=== PATIENT | female | born 1955 | race Caucasian/White ===

== ENCOUNTER 2022-03-30 16:52 | Inpatient (IN) | payer OTHER ==
[~2022-03-30] VITALS: Ht 154.9 cm; Wt 68.0 kg
[~2022-03-30 16:52] MED LIST: AMLO2.5T2 PO; ASA81 PO; ASPI-524 PO; CYAN100070 PO; DULO60CA42 PO; FOLI400T9 PO; LEVO250T2 PO; LOVA20TA2 PO; LYR50 PO; NPH,100V SUBCUT; TUM500 GT; VIT1TABL44 PO; insulin pump
[2022-03-30] MEDS ORDERED: NACL 0.9% 1,000 ML IV ONE (17:30)
[2022-03-30 18:00] VITALS: BP_SYST 152
[2022-03-30 18:00] LABS: BASOPHILS % (AUTO) 0.3 % (0.0-2.0); HEMATOCRIT 32.2 % (36-48); LYMPHOCYTES # (AUTO) 0.8 K/uL (1.0-5.5); MEAN CORPUSCULAR HEMOGLOBIN 29 pg (27-31); MEAN CORPUSCULAR HGB CONC 31 % (32-36); MEAN CORPUSCULAR VOLUME 92 fL (79.0-98.0); MONOCYTES # (AUTO) 0.9 K/uL (0.0-1.0); MONOCYTES % (AUTO) 8.4 % (1.7-9.3); NEUTROPHILS # (AUTO) 8.7 K/uL (1.8-7.7); NEUTROPHILS % (AUTO) 83.3 % (40.0-70.0); PLATELET COUNT (AUTO) 240 K/uL (130-430); RED CELL DISTRIBUTION WIDTH 18.8 % (9.0-15.0); WHITE BLOOD COUNT (AUTO) 10.4 K/uL (4.8-10.8)
[2022-03-30 18:17] LABS: ANION GAP 16 (5-15); CALCIUM 8.2 mg/dL (8.4-11.0); CHLORIDE 97 mmol/L (98-107); CREATININE 6.01 mg/dL (0.55-1.30); UREA NITROGEN, BLOOD 79 mg/dL (8-21)
--- NOTE | 2022-03-30 18:20 | NUR ---
Ms. Daugherty is a 67-year-old Female with history of type 1 diabetes, ESRD on dialysis Thursday/Thursday/Thursday and recent hospitalization for COVID 2 weeks ago. CC high blood sugar values. She states her symptoms started this morning at 6 AM, she has taken a total of 40 units of NPH insulin without improvement. Patient states that her at home blood glucometer is giving a reading of high, without a number. She also endorses a few episodes of emesis today and reports that she feels warm, however does not have a fever. Denies associated chest pain, shortness of breath, cough, diarrhea, abdominal pain or any other symptoms at this time. Patient's last dialysis session was on Thursday, which she completed without complication.
[2022-03-30 18:33] LABS: ALANINE AMINOTRANSFERASE 26 U/L (12-78); ASPARTATE AMINOTRANSFERASE 19 U/L (10-37); LIPASE 232 U/L (73-393); TOTAL BILIRUBIN 0.4 mg/dL (0.0-1.0)
[2022-03-30 18:35] LABS: GFR AFRICAN AMERICAN 9 mL/min (>90)
[2022-03-30 18:41] LABS: GLUCOSE 713 mg/dL (70-99)
--- NOTE | 2022-03-30 18:44 | NUR ---
Critical lab value: blood sugar 713 troponin 1081
[2022-03-30 18:47] LABS: ACETONE, SERUM NEGATIVE (NEGATIVE)
[2022-03-30] MEDS ORDERED: ASPIRIN 81 MG TAB.CHEW PO ONE (19:00)
[2022-03-30] MEDS ORDERED: INSULIN REGULAR, HUMAN 100 UNITS/ML, 3 ML VIAL SUBCUT ONE (19:00)
--- NOTE | 2022-03-30 19:01 | NUR ---
covid swab collected at bedside
--- NOTE | 2022-03-30 19:27 | NUR ---
Received report from RAN Rios. Pt moved from [facility] to bed 2 as commanded by dariela rim fire charger operator.
--- NOTE | 2022-03-30 20:49 | NUR ---
patient refused aspirin. made aware.
--- NOTE | 2022-03-30 20:52 | NUR ---
Paged Dr. Brumfield at this time. Awaiting phone call back.
--- NOTE | 2022-03-30 21:14 | NUR ---
Admit bed requested Patient will be admitted to care of . Admitted to TELE unit. Diagnosis : STEMI, HYPERGLYCEMIA, RENAL FAILURE Inpatient (Yes or No) Y Observation (Yes or No) N Orientation concerns or request close to nursing station (Yes or No) N Covid Status : POSITIVE On vent or bipap: N Isolation requirements: N Needs a sitter: N From Home (Yes or if No enter name of facility) Y Requires Dialysis (Yes or No) N
--- NOTE | 2022-03-30 21:28 | NUR ---
Spoke with Dr. Brumfield. NOtified physician of patient's blood sugar. Instructed to follow sliding scale and to get patient to shut off her own insulin pump. Admiting provider also notified of patient's covid positive status and elevated troponins. Instructed to notify cardiology consult Dr. Kandice Brumfield.
[2022-03-30] MEDS ORDERED: *HEPARIN PER PHARMACY XX ONE ×2 (21:30→23:00)
[2022-03-30] MEDS ORDERED: HEPARIN 25,000 UNITS/D5W 250ML 250 ML IV ONE (21:30)
--- NOTE | 2022-03-30 21:34 | NUR ---
Spoke with cardiology consult Dr. Kandice Brumfield. Notified cardiology of elevated troponins and current blood pressure trends. See new orders entered.
[2022-03-30] MEDS: INSULIN REGULAR, HUMAN 100 UNITS/ML, 3 ML VIAL (humuLIN R) SUBCUT PRN (21:35)
[2022-03-30] MEDS ORDERED: INSULIN REGULAR, HUMAN 10 UNITS/0.1 ML, 3 ML VIAL ONE (21:55)
--- NOTE | 2022-03-30 22:38 | NUR ---
Lab noted to add on pt/inr. Blood specimen in lab.
[2022-03-30] MEDS ORDERED: HYDROcodone/ACETAMIN 5-325 MG TAB (NORCO/ VICODIN) PO PRN (22:45)
[2022-03-30] MEDS ORDERED: HYDROcodone/ACETAMIN 10-325 MG TAB PO PRN (22:45)
[2022-03-30] MEDS ORDERED: ONDANSETRON HCL 4 MG/2 ML VIAL IVP PRN (22:45)
[2022-03-30] MEDS ORDERED: ACETAMINOPHEN 325 MG TABLET PO PRN (22:45)
[2022-03-30] MEDS ORDERED: NALOXONE HCL 0.4 MG/ML AMP (NARCAN) IVP PRN ×2 (22:45)
--- NOTE | 2022-03-30 22:46 | NUR ---
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
[2022-03-30] MEDS: METOPROLOL SUCCINATE 25 MG TAB.SR.24H (TOPROL XL) PO SCH (23:30)
[2022-03-30] MEDS ORDERED: HEPARIN SODIUM,PORCINE 3000 UNITS/0.6 ML BOLUS IVP PRN (23:45)
[2022-03-30] MEDS ORDERED: HEPARIN SODIUM,PORCINE 2000 UNITS/0.4 ML BOLUS IVP PRN (23:45)
[2022-03-30] MEDS ORDERED: HEPARIN SODIUM,PORCINE 5,000 UNITS/ML VIAL IV ONE (23:45)
[2022-03-31] VITALS (18 sets, daily range): BP systolic 102–162
--- NOTE | 2022-03-31 01:09 | NUR ---
Notified community relations specialist to page both Dr. Cole (cardiology and admitting).
[2022-03-31] MEDS ORDERED: VITA250012 PO (01:24)
[2022-03-31] MEDS ORDERED: FOLI0.8T42 PO (01:24)
[2022-03-31] MEDS ORDERED: AMLO5TAB4 PO (01:24)
[2022-03-31] MEDS ORDERED: LIP20 PO (01:24)
[2022-03-31] MEDS ORDERED: ASPI-1155 PO (01:24)
[2022-03-31] MEDS ORDERED: LACT1TAB PO (01:24)
[2022-03-31] MEDS ORDERED: PREG75CA PO (01:24)
[2022-03-31] MEDS ORDERED: CALC-886 PO (01:24)
[2022-03-31] MEDS: HEPARIN 25,000 UNITS in 250 ML PREMIX IV PRN (01:41)
--- NOTE | 2022-03-31 01:41 | NUR ---
Heparin gtt started @10ml/hr (1,000 units./hr). Clarified with Pharmacist Jaimet infuse medication at this rate.
[2022-03-31] MEDS ORDERED: NACL 0.9% 1,000 ML IV ONE (01:45)
--- NOTE | 2022-03-31 03:49 | NUR ---
Pt upgraded to icu level of care. Instructed to start patient on levophed drip.
[2022-03-31] MEDS ORDERED: NOREPINEPHRINE 4 MG/4 ML VIAL IV ONE (03:55)
[2022-03-31] MEDS ORDERED: NOREPINEPHRINE BITARTRATE 4 MG in NS 246 ML IV PRN (04:00)
--- NOTE | 2022-03-31 04:15 | NUR ---
Levophed gtt initiated at this time. Infusing at 0.1mcg/kg/min. Rate 25.5ml/hr. Only allowed to round using iv pump. Pt weight entered at 68kg.
--- NOTE | 2022-03-31 05:35 | NUR ---
Patient will be admitted to care of Dr. Brumfield. Admitted to ICU unit. Will go to room 127. Belongings list completed. Complete and up to date summary report printed. SBAR report given at bedside to JEREMIAH Hicks with opportunity for questions.
--- NOTE | 2022-03-31 06:20 | NUR ---
ER ADMISSION Pt admitted to ICU 9 (127A), Alert/oriented to self, place and time. Pt on room air O2 sat 93-95 %. AV shunt present left upper arm, Dialysis cath present left upper chest. Pt with 22ag right hand & 22ga right wrist, both started by ER staff. Pt belongings @ bedside. Pt also has a small insulin pump on.
[2022-03-31] MEDS ORDERED: INSULIN REGULAR, HUMAN 100 UNITS/ML, 3 ML VIAL SUBCUT SCH (07:00)
[2022-03-31] MEDS: DULoxetine HCL 30 MG CAPSULE.DR (CYMBALTA) PO SCH (08:06)
[2022-03-31] MEDS: PREGABALIN 25 MG CAPSULE (LYRICA) PO SCH ×3 (08:06→21:12)
[2022-03-31] MEDS: ASPIRIN 81 MG TAB.CHEW PO SCH (08:06)
[2022-03-31] MEDS: CALCIUM CARBONATE 500 MG/ TAB.CHEW GT SCH ×2 (08:06→21:11)
[2022-03-31] MEDS: amLODIPine BESYLATE 5 MG TABLET PO SCH ×3 (08:07→09:00)
[2022-03-31] MEDS: NORMAL SALINE 5 ML DISP.SYRIN IVF SCH ×3 (08:07→21:12)
[2022-03-31] MEDS: METOPROLOL SUCCINATE 25 MG TAB.SR.24H (TOPROL XL) PO SCH ×2 (08:07→09:06)
--- NOTE | 2022-03-31 08:30 | NUR ---
notified dr melba Baldwin that patient is receiving heparin drip into the right upper extremity and that patient has a shunt on the left arm so dr melba Baldwin order to do blood draws for PTT in lower extremities.
[2022-03-31] MEDS: INSULIN REGULAR, HUMAN 100 UNITS/ML, 3 ML VIAL (humuLIN R) SUBCUT PRN ×4 (08:40→21:22)
--- NOTE | 2022-03-31 08:49 | NUR ---
spoke with dr melba joyce, notified of patient status, ordered to increase metoprolol to 25mg same frequency, and increase atorvastatin to 40mg same frequency, also ordered for picc line since patient is receiving levophed and heparin.
[2022-03-31] MEDS ORDERED: ASPIRIN 81 MG TAB.CHEW PO SCH (09:00)
[2022-03-31 09:07] LABS: BASOPHILS # (AUTO) 0.1 K/uL (0.0-0.2); BASOPHILS % (AUTO) 1.1 % (0.0-2.0); EOSINOPHILS # (AUTO) 0.1 K/uL (0.0-0.4); EOSINOPHILS % (AUTO) 0.6 % (0.0-4.0); HEMATOCRIT 28.6 % (36-48); HEMOGLOBIN 9.1 g/dL (12.0-16.0); LYMPHOCYTES # (AUTO) 2.6 K/uL (1.0-5.5); LYMPHOCYTES % (AUTO) 20.3 % (20.5-51.5); MEAN CORPUSCULAR HEMOGLOBIN 28 pg (27-31); MEAN CORPUSCULAR HGB CONC 32 % (32-36); MEAN CORPUSCULAR VOLUME 89 fL (79.0-98.0); MONOCYTES % (AUTO) 7.9 % (1.7-9.3); NEUTROPHILS # (AUTO) 8.8 K/uL (1.8-7.7); NEUTROPHILS % (AUTO) 70.1 % (40.0-70.0); PLATELET COUNT (AUTO) 200 K/uL (130-430); RED BLOOD CELL COUNT(AUTO) 3.23 MIL/uL (4.2-6.2); RED CELL DISTRIBUTION WIDTH 19.2 % (9.0-15.0); WHITE BLOOD COUNT (AUTO) 12.6 K/uL (4.8-10.8)
[2022-03-31 10:13] LABS: ALBUMIN 2.5 g/dL (3.4-4.8); CALCIUM 7.8 mg/dL (8.4-11.0); CREATININE 5.82 mg/dL (0.55-1.30); PHOSPHORUS 6.7 mg/dL (2.7-4.5); TOTAL BILIRUBIN 0.3 mg/dL (0.0-1.0)
[2022-03-31 10:22] LABS: PROTHROMBIN TIME 10.4 SECS (9.5-12.5)
[2022-03-31] MEDS ORDERED: HEPARIN SODIUM,PORCINE 5,000 UNITS/ML VIAL MC ONE ×2 (11:30→15:00)
[2022-03-31] MEDS ORDERED: amLODIPine BESYLATE 10 MG TABLET PO ONE (11:50)
[2022-03-31] MEDS ORDERED: ATORVASTATIN 20 MG TABLET PO ONE (12:00)
[2022-03-31] MEDS ORDERED: METOPROLOL SUCCINATE 25 MG TAB.SR.24H (TOPROL XL) PO ONE (12:00)
[2022-03-31] MEDS ORDERED: CALCIUM ACETATE 667 MG CAP PO ONE (12:45)
[2022-03-31] MEDS ORDERED: ISOSORBIDE MONONITRATE 30 MG TAB.ER.24H PO ONE (14:00)
[2022-03-31] MEDS: CALCIUM ACETATE 667 MG CAP PO SCH (17:18)
[2022-03-31] MEDS ORDERED: ATORVASTATIN 20 MG TABLET PO SCH (18:00)
[2022-03-31] MEDS ORDERED: VANCOMYCIN HCL 1,000 MG in NS 250 ML IV ONE (18:00)
[2022-03-31] MEDS ORDERED: ATORVASTATIN 10 MG TABLET PO SCH (18:00)
--- NOTE | 2022-03-31 18:07 | NUR ---
PATIENT RECEIVING DIALYSIS. HOLDING IV ANTIBIOTICS UNTIL DIALYSIS IS FINISHED.
--- NOTE | 2022-03-31 19:00 | NUR ---
PT FINISHED DIALYSIS, 2 LITERS OUT, TOLERATED WELL.
[2022-04-01] VITALS (17 sets, daily range): BP systolic 102–142
[2022-04-01 06:07] LABS: BASOPHILS # (AUTO) 0.1 K/uL (0.0-0.2); BASOPHILS % (AUTO) 1.1 % (0.0-2.0); EOSINOPHILS # (AUTO) 0.1 K/uL (0.0-0.4); EOSINOPHILS % (AUTO) 1.7 % (0.0-4.0); HEMATOCRIT 28.3 % (36-48); HEMOGLOBIN 9.2 g/dL (12.0-16.0); LYMPHOCYTES # (AUTO) 1.7 K/uL (1.0-5.5); LYMPHOCYTES % (AUTO) 30.9 % (20.5-51.5); MEAN CORPUSCULAR HEMOGLOBIN 29 pg (27-31); MEAN CORPUSCULAR HGB CONC 33 % (32-36); MEAN CORPUSCULAR VOLUME 88 fL (79.0-98.0); MONOCYTES # (AUTO) 0.7 K/uL (0.0-1.0); MONOCYTES % (AUTO) 13.1 % (1.7-9.3); NEUTROPHILS # (AUTO) 2.9 K/uL (1.8-7.7); NEUTROPHILS % (AUTO) 53.2 % (40.0-70.0); PLATELET COUNT (AUTO) 144 K/uL (130-430); RED BLOOD CELL COUNT(AUTO) 3.23 MIL/uL (4.2-6.2); WHITE BLOOD COUNT (AUTO) 5.5 K/uL (4.8-10.8)
[2022-04-01] MEDS: NORMAL SALINE 5 ML DISP.SYRIN IVF SCH ×3 (06:44→22:29)
[2022-04-01] MEDS: PREGABALIN 25 MG CAPSULE (LYRICA) PO SCH ×3 (06:44→22:28)
[2022-04-01] MEDS: INSULIN REGULAR, HUMAN 100 UNITS/ML, 3 ML VIAL (humuLIN R) SUBCUT PRN ×4 (06:55→22:50)
[2022-04-01 07:10] LABS: CALCIUM 7.9 mg/dL (8.4-11.0); CREATININE 3.61 mg/dL (0.55-1.30)
[2022-04-01 07:29] LABS: ALBUMIN 2.4 g/dL (3.4-4.8); C-REACTIVE PROTEIN QUANT 1.6 mg/dL (0-0.5); PHOSPHORUS 5.1 mg/dL (2.7-4.5); TOTAL BILIRUBIN 0.3 mg/dL (0.0-1.0); VANCOMYCIN,RANDOM 17.4 ug/mL
--- NOTE | 2022-04-01 08:00 | NUR ---
PT IN BED, NO S/S OF DISTRESS, A/OX3, ROOM AIR, 2 R WRIST IV 22G, HEPARIN RUNNING 1000U/HR WITH MORNING PTT THE NEW DOSING IS 1200 UNITS/HR, CONTINENT BOWEL AND BLADDER, RECEIVED DIALYSIS YESTERDAY 2L OUT, 1BM AT START OF SHIFT, NAYANA GOSS AWARE OF TROPONIN 903, RIGHT SUBCLAVIAN PERMCATH, LEFT UPPER ARM SHUNT NOT YET READY FOR USE THRILL AND BRUIT PRESENT, LEFT BKA.
[2022-04-01] MEDS: CALCIUM ACETATE 667 MG CAP PO SCH ×3 (08:05→18:29)
[2022-04-01] MEDS: DULoxetine HCL 30 MG CAPSULE.DR (CYMBALTA) PO SCH (08:05)
[2022-04-01] MEDS: ASPIRIN 81 MG TAB.CHEW PO SCH (08:05)
[2022-04-01] MEDS: ISOSORBIDE MONONITRATE 30 MG TAB.ER.24H PO SCH (08:05)
[2022-04-01] MEDS: amLODIPine BESYLATE 10 MG TABLET PO SCH (08:06)
[2022-04-01] MEDS: CALCIUM CARBONATE 500 MG/ TAB.CHEW GT SCH ×2 (08:06→22:28)
[2022-04-01] MEDS: METOPROLOL SUCCINATE 25 MG TAB.SR.24H (TOPROL XL) PO SCH (08:06)
[2022-04-01] MEDS: ATORVASTATIN 20 MG TABLET PO SCH (08:26)
[2022-04-01] MEDS: HEPARIN 25,000 UNITS in 250 ML PREMIX IV PRN ×2 (10:49→18:55)
--- NOTE | 2022-04-01 11:17 | NUR ---
BOWEL MOVEMENT, PT CLEANED, BED MAS USED.
[2022-04-01 12:32] LABS: ERYTHROCYTE SEDIMENTATION RATE 43 MM/HR (0-20)
--- NOTE | 2022-04-01 15:31 | NUR ---
DR LEDEZMA UPDATED ON PATIENT STATUS, ORDERED TO TRANSFER PATIENT TO TELEMETRY, CLEARED BY NAYANA GOSS FOR PATIENT TO DOWNGRADE TO TELE. PATIENT A/OX3, NO S/S OF DISTRESS. HEPARIN DRIP ON HOLD FOR PTT >150.
--- NOTE | 2022-04-01 16:20 | NUR ---
PATIENT TRANSFERRED TO TELEMETRY IN BED AND ON PORTABLE MONITOR, ALL BELONGING TRANSFERRED WITH PATIENT, ON ROOM AIR, 2 R WRIST 22G IV INTACT PATENT, ENDORSED CONTINUATION OF CARE TO JEREMIAH NORRIS AND MADE AWARE THAT PTT IS DUE AND HEPARIN DRIP NEEDS TO BE PROGRAMED ACCORDING TO PTT PROTOCOL AND VOICED UNDERSTANDING. PATIENT TOLERATED TRANSFER WELL.
--- NOTE | 2022-04-01 16:21 | NUR ---
NOTIFIED JEREMIAH NORRIS WHO WAS ENDORSED CARE THAT PATIENT HAS A LEFT UPPER ARM SHUNT AND THAT BLOOD DRAWS AND BLOOD PRESSURE CAN NOT BE TAKEN ON THAT ARM AND TO PLACE A SIGN IN THE ROOM. IN ADDITION NOTIFIED THAT DR CORKY Baldwin ORDERED THAT PATIENT HAS PTT DRAWN FROM THE RIGHT LOWER EXTREMITY.
[2022-04-01] MEDS ORDERED: VANCOMYCIN HCL 1,000 MG in NS 250 ML IV ONE (18:00)
[2022-04-02 00:17] VITALS: BP_SYST 152
--- NOTE | 2022-04-02 04:00 | NUR ---
PTT IS>150 SAME STOPPED PER PROTOCOL AND PTT IS TO BE DRAWN UNTIL IT IS120
[2022-04-02] MEDS: PREGABALIN 25 MG CAPSULE (LYRICA) PO SCH ×3 (05:43→23:35)
[2022-04-02] MEDS: NORMAL SALINE 5 ML DISP.SYRIN IVF SCH ×3 (05:44→23:36)
[2022-04-02 06:39] LABS: BASOPHILS # (AUTO) 0.1 K/uL (0.0-0.2); BASOPHILS % (AUTO) 1.1 % (0.0-2.0); EOSINOPHILS # (AUTO) 0.1 K/uL (0.0-0.4); EOSINOPHILS % (AUTO) 2.7 % (0.0-4.0); HEMATOCRIT 29.5 % (36-48); HEMOGLOBIN 9.5 g/dL (12.0-16.0); LYMPHOCYTES # (AUTO) 1.7 K/uL (1.0-5.5); LYMPHOCYTES % (AUTO) 35.4 % (20.5-51.5); MEAN CORPUSCULAR HEMOGLOBIN 28 pg (27-31); MEAN CORPUSCULAR HGB CONC 32 % (32-36); MEAN CORPUSCULAR VOLUME 88 fL (79.0-98.0); MONOCYTES # (AUTO) 0.7 K/uL (0.0-1.0); MONOCYTES % (AUTO) 15.1 % (1.7-9.3); NEUTROPHILS # (AUTO) 2.2 K/uL (1.8-7.7); NEUTROPHILS % (AUTO) 45.7 % (40.0-70.0); PLATELET COUNT (AUTO) 138 K/uL (130-430); RED BLOOD CELL COUNT(AUTO) 3.35 MIL/uL (4.2-6.2); RED CELL DISTRIBUTION WIDTH 19.2 % (9.0-15.0); WHITE BLOOD COUNT (AUTO) 4.7 K/uL (4.8-10.8)
[2022-04-02] MEDS: INSULIN REGULAR, HUMAN 100 UNITS/ML, 3 ML VIAL (humuLIN R) SUBCUT PRN ×3 (06:54→23:48)
--- NOTE | 2022-04-02 08:00 | NUR ---
SUMMARY OF CARE 0800 ON COVID ISOLATION, ON ROOM AIR, LEFT BKA, HEPARIN STOP AT THIS TIME, WAITING FOR PTT, AV SHUNT LEFT ARM, PERMA CATH RIGHT CHEST, WAITING FOR HEMODIALYSIS 1200 SEEN BY MD, IV INFILTRATED RIGHT WRIST, NEW IV SITE RE INSERTED RIGHT FOREARM. 1600 HEMODIALYSIS STARTED 81294 HD DONE, 2L OUTPUT OUT, ENDORSED TO INCOMING NURSE TO GIVE BP MEDS.
[2022-04-02 08:15] VITALS: BP_SYST 131
[2022-04-02 08:44] LABS: ALBUMIN 2.5 g/dL (3.4-4.8); CALCIUM 8.2 mg/dL (8.4-11.0); CREATININE 4.3 mg/dL (0.55-1.30); TOTAL BILIRUBIN 0.3 mg/dL (0.0-1.0)
[2022-04-02] MEDS: ASPIRIN 81 MG TAB.CHEW PO SCH (10:08)
[2022-04-02] MEDS: CALCIUM ACETATE 667 MG CAP PO SCH ×3 (10:09→17:14)
[2022-04-02] MEDS: CALCIUM CARBONATE 500 MG/ TAB.CHEW GT SCH ×2 (10:09→23:35)
[2022-04-02] MEDS: DULoxetine HCL 30 MG CAPSULE.DR (CYMBALTA) PO SCH (10:10)
[2022-04-02] MEDS: ATORVASTATIN 20 MG TABLET PO SCH (10:10)
[2022-04-02] MEDS: HEPARIN 25,000 UNITS in 250 ML PREMIX IV PRN ×2 (10:14→17:17)
[2022-04-02 12:10] VITALS: BP_SYST 144
[2022-04-02 12:20] LABS: VANCOMYCIN,RANDOM 27.9 ug/mL
[2022-04-02 16:05] VITALS: BP_SYST 145
[2022-04-02] MEDS ORDERED: HEPARIN SODIUM,PORCINE 5,000 UNITS/ML VIAL MC ONE (17:15)
--- NOTE | 2022-04-02 20:30 | NUR ---
OPENING Received report from day shift nurse. Patient resting in bed, unlabored breathing on room air. Heparin drip running at 12cc/hr per protocol. Safety precautions in place.
[2022-04-02 20:45] VITALS: BP_SYST 139
[2022-04-02] MEDS: amLODIPine BESYLATE 10 MG TABLET PO SCH (21:34)
[2022-04-02] MEDS: ISOSORBIDE MONONITRATE 30 MG TAB.ER.24H PO SCH (21:34)
[2022-04-02] MEDS: METOPROLOL SUCCINATE 25 MG TAB.SR.24H (TOPROL XL) PO SCH (21:34)
--- NOTE | 2022-04-02 21:34 | NUR ---
DR. Magdy FRIED Spoke with Dr. Magdy Fried about patient's blood pressure medications that patient did not receive due to low blood pressure after dialysis. Given current vital signs, Dr. Fried stated not to give meds tonight and to resume meds in the morning.
[2022-04-03] VITALS: BP_SYST 145
--- NOTE | 2022-04-03 04:00 | NUR ---
APTT 118.7 Hold heparin drip at 0400 am per heparin protocol then resume in an hour by decreasing by 200 units so total 1000 un its per hour then repeat APTT in 6 hours 1100 hours, rechecked by 2 RN
[2022-04-03] MEDS: HEPARIN 25,000 UNITS in 250 ML PREMIX IV PRN ×2 (05:00→18:47)
--- NOTE | 2022-04-03 05:00 | NUR ---
HEPARIN DRIP Rate changed to 10 mL/hr per protocol.
[2022-04-03] MEDS: PREGABALIN 25 MG CAPSULE (LYRICA) PO SCH ×3 (06:54→22:37)
[2022-04-03] MEDS: NORMAL SALINE 5 ML DISP.SYRIN IVF SCH ×3 (06:54→22:37)
[2022-04-03] MEDS: INSULIN REGULAR, HUMAN 100 UNITS/ML, 3 ML VIAL (humuLIN R) SUBCUT PRN ×3 (07:05→22:55)
--- NOTE | 2022-04-03 07:30 | NUR ---
CLOSING Patient resting in bed, unlabored breathing on room air. 2 units regular insulin given per sliding scale this morning. Heparin drip infusing at 10 mL/hr per protocol. Safety precautions in place.
[2022-04-03 08:36] VITALS: BP_SYST 145
[2022-04-03 08:48] LABS: BASOPHILS % (AUTO) 0.9 % (0.0-2.0); EOSINOPHILS # (AUTO) 0.1 K/uL (0.0-0.4); EOSINOPHILS % (AUTO) 2.6 % (0.0-4.0); HEMATOCRIT 30.1 % (36-48); HEMOGLOBIN 9.7 g/dL (12.0-16.0); LYMPHOCYTES # (AUTO) 1.8 K/uL (1.0-5.5); LYMPHOCYTES % (AUTO) 38.7 % (20.5-51.5); MEAN CORPUSCULAR HEMOGLOBIN 29 pg (27-31); MEAN CORPUSCULAR HGB CONC 32 % (32-36); MEAN CORPUSCULAR VOLUME 88 fL (79.0-98.0); MONOCYTES # (AUTO) 0.7 K/uL (0.0-1.0); MONOCYTES % (AUTO) 14.1 % (1.7-9.3); NEUTROPHILS % (AUTO) 43.7 % (40.0-70.0); PLATELET COUNT (AUTO) 126 K/uL (130-430); RED BLOOD CELL COUNT(AUTO) 3.42 MIL/uL (4.2-6.2); WHITE BLOOD COUNT (AUTO) 4.6 K/uL (4.8-10.8)
--- NOTE | 2022-04-03 09:00 | NUR ---
AM NOTES PATIENT ON COVID ISOLATION, ON ROOM AIR, S/P LEFT BKA, ASSISTED TO SIT IN THE COMMODE, BACK TO BED, GOOD PERICARE PROVIDED
[2022-04-03 09:15] LABS: CALCIUM 8.3 mg/dL (8.4-11.0); CREATININE 2.97 mg/dL (0.55-1.30)
[2022-04-03 09:33] LABS: ALBUMIN 2.5 g/dL (3.4-4.8); TOTAL BILIRUBIN 0.3 mg/dL (0.0-1.0)
[2022-04-03] MEDS: CALCIUM CARBONATE 500 MG/ TAB.CHEW GT SCH ×2 (09:37→22:36)
[2022-04-03] MEDS: ATORVASTATIN 20 MG TABLET PO SCH (09:37)
[2022-04-03] MEDS: DULoxetine HCL 30 MG CAPSULE.DR (CYMBALTA) PO SCH (09:37)
[2022-04-03] MEDS: CALCIUM ACETATE 667 MG CAP PO SCH ×3 (09:37→18:48)
[2022-04-03] MEDS: ASPIRIN 81 MG TAB.CHEW PO SCH (09:37)
[2022-04-03] MEDS: ISOSORBIDE MONONITRATE 30 MG TAB.ER.24H PO SCH (09:38)
[2022-04-03] MEDS: METOPROLOL SUCCINATE 25 MG TAB.SR.24H (TOPROL XL) PO SCH (09:39)
[2022-04-03] MEDS: amLODIPine BESYLATE 10 MG TABLET PO SCH (09:40)
--- NOTE | 2022-04-03 12:00 | NUR ---
ACCUCHECK ACCUCHECK DONE, LUNCH SERVED, DUE INSULIN GIVEN.
--- NOTE | 2022-04-03 12:30 | NUR ---
REPORT RECEIVED YUKI DANIELS. PT IS A/OX4, VS STABLE, NSR ON TELE, NO ACUTE DISTRESS NOTED. HEPARIN DRIP INFUSING AT 10CC/H, PHARMACY TO DOSE. NO BLEEDING NOTED AND WILL CONTINUE TO MONITOR FOR BLEEDING. CONTINUE CONTACT DROPLET ISOLATION FOR COVID 19. ASSUMING CARE FOR PT.
[2022-04-03 12:35] VITALS: BP_SYST 135
[2022-04-03 15:29] VITALS: BP_SYST 124
--- NOTE | 2022-04-03 20:00 | NUR ---
OPENING Received report from day shift nurse. Patient resting in bed, unlabored breathing on room air. Heparin drip infusing. No sign of bleeding. Safety precautions in place.
[2022-04-03 20:43] VITALS: BP_SYST 126
--- NOTE | 2022-04-03 23:00 | NUR ---
ELEVATED BLOOD SUGAR Blood sugar 457. Administered 12 units regular insulin per sliding scale. Paged Dr. Costello.
--- NOTE | 2022-04-03 23:30 | NUR ---
DR. LEDEZMA Informed Dr. Ledezma of patient's blood sugar 457 and that 12 units regular insulin were given per sliding scale. Dr. Ledezma gave order for Lantus 12 units qHS, first dose now. Dr. Ledezma also gave order to discharge home in the morning, to discontinue heparin drip, and to discontinue COVID isolation. Patient is on Thursday/Thursday/Thursday dialysis schedule. Dr. Ledezma stated to have patient go to her regular dialysis center for dialysis tomorrow. Patient stated that her can pick her up tomorrow when she is discharged and that she can call her dialysis center to let them know she will be coming.
[2022-04-03] MEDS ORDERED: INSULIN GLARGINE 100 UNITS/ML, 10 ML VIAL SUBCUT SCH (23:45)
--- NOTE | 2022-04-04 00:09 | NUR ---
12 units Lantus given per order from Dr. Costello. Blood sugar 402.
[2022-04-04 00:30] VITALS: BP_SYST 141
[2022-04-04] MEDS: PREGABALIN 25 MG CAPSULE (LYRICA) PO SCH (06:47)
[2022-04-04] MEDS: NORMAL SALINE 5 ML DISP.SYRIN IVF SCH (06:47)
--- NOTE | 2022-04-04 07:30 | NUR ---
CLOSING Patient resting in bed, unlabored breathing on room air. Accucheck 128 this morning. Patient states her can pick her up and that her spoke with her dialysis center and the only opening they have today is from 10-11 AM. Care endorsed to oncoming nurse.
[2022-04-04] MEDS: CALCIUM ACETATE 667 MG CAP PO SCH ×2 (08:00→11:36)
[2022-04-04] MEDS ORDERED: INSU100V9 SQ (10:29)
[2022-04-04] MEDS: DULoxetine HCL 30 MG CAPSULE.DR (CYMBALTA) PO SCH (11:33)
[2022-04-04] MEDS: ASPIRIN 81 MG TAB.CHEW PO SCH (11:34)
[2022-04-04] MEDS: CALCIUM CARBONATE 500 MG/ TAB.CHEW GT SCH (11:34)
[2022-04-04] MEDS: amLODIPine BESYLATE 10 MG TABLET PO SCH (11:35)
[2022-04-04] MEDS: METOPROLOL SUCCINATE 25 MG TAB.SR.24H (TOPROL XL) PO SCH (11:35)
[2022-04-04] MEDS: ISOSORBIDE MONONITRATE 30 MG TAB.ER.24H PO SCH (11:35)
[2022-04-04] MEDS: ATORVASTATIN 20 MG TABLET PO SCH (11:36)
[2022-04-04 11:37] VITALS: BP_SYST 142
[2022-04-04 12:19] VITALS: BP_SYST 140
--- NOTE | 2022-04-04 14:30 | NUR ---
Dietitian Recommendations * Continue [facility] diet * RD provided Renal/HD MNT LP, MS, RD Please refer to Nutrition Assessment for details. Addendum: 04/04/22 at [address] Amended: Links added.
[2022-04-04] MEDS ORDERED: EPOETIN ALFA-EPBX 4,000 UNITS/ML VIAL SUBCUT SCH (17:00)
[2022-04-04] MEDS ORDERED: VANCOMYCIN HCL 1,000 MG in NS 250 ML IV ONE (18:00)
== END 2022-04-04 14:38 | disposition home or self-care (01) | DRG 871 ==
LOC: SED 16:52 → STU 21:04 → SIC 03-31 03:44 → STU 04-01 17:44
PROVIDERS: ADMIT Preventive Medicine Preventive Medicine/Occupational Environmental Medicine; ATTEND Specialist
PROC: 5A1D70Z Performance of Urinary Filtration, Intermittent, Less than 6 Hours Per Day (ICD-10-PCS; principal; 2022-03-31)
PROC: 5A1D70Z Performance of Urinary Filtration, Intermittent, Less than 6 Hours Per Day (ICD-10-PCS; 2022-04-02)
DX: A41.9 Sepsis, unspecified organism (principal); I21.4 Non-ST elevation (NSTEMI) myocardial infarction; U07.1 COVID-19; J12.82 Pneumonia due to coronavirus disease 2019; N18.6 End stage renal disease; R65.21 Severe sepsis with septic shock; I12.0 Hypertensive chronic kidney disease with stage 5 chronic kidney disease or end stage renal disease; E78.00 Pure hypercholesterolemia, unspecified; E10.40 Type 1 diabetes mellitus with diabetic neuropathy, unspecified; E10.65 Type 1 diabetes mellitus with hyperglycemia; E88.09 Other disorders of plasma-protein metabolism, not elsewhere classified; E83.39 Other disorders of phosphorus metabolism; Y83.8 Other surgical procedures as the cause of abnormal reaction of the patient, or of later complication, without mention of misadventure at the time of the procedure; D64.9 Anemia, unspecified; E10.22 Type 1 diabetes mellitus with diabetic chronic kidney disease; Z79.82 Long term (current) use of aspirin; Z79.899 Other long term (current) drug therapy; Z99.2 Dependence on renal dialysis; Z89.512 Acquired absence of left leg below knee; Y92.89 Other specified places as the place of occurrence of the external cause; Z96.41 Presence of insulin pump (external) (internal)
CPT/HCPCS: 36415; 71045; 80053; 80202; 82009; 82962; 83690; 83735; 83880; 84100; 84484; 85025; 85610-TC; 85651-TC; 85730-TC; 86140; 87040; 87081; 90935; 90937; 93005; 93306; 99291; G0378; J0696; J1644; J1815; J3370; J7030; J7050; J7060; Q5106

== ENCOUNTER 2023-04-20 06:15 | Day surgery (SDC) | payer OTHER ==
[~2023-04-20] VITALS: Ht 154.9 cm; Wt 70.3 kg
[~2023-04-20 06:15] MED LIST changes: +AMLO5TAB4 PO; +ASPI-1155 PO; +CALC-886 PO; +FOLI0.8T42 PO; +INSU100V9 SQ; +LACT1TAB PO; +LIP20 PO; +PREG75CA PO; +VITA250012 PO
[2023-04-20 07:40] LABS: CALCIUM 8.4 mg/dL (8.4-11.0); CREATININE 4.5 mg/dL (0.55-1.30); POTASSIUM 5.1 mmol/L (3.5-5.1)
[2023-04-20 07:45] LABS: ALBUMIN 3.2 g/dL (3.4-4.8); TOTAL BILIRUBIN 0.3 mg/dL (0.0-1.0)
[2023-04-20] MEDS ORDERED: ePHEDrine sulfate 50 MG/ML VIAL ONE (08:07)
[2023-04-20] MEDS ORDERED: PROPOFOL 200MG/ 20ML VIAL (DIPRIVAN) IV ONE (08:07)
[2023-04-20] MEDS ORDERED: NS 1000 ML IV.SOLN IV ONE (08:07)
[2023-04-20] MEDS ORDERED: NACL 0.9% 1,000 ML IV SCH (08:30)
[2023-04-20] MEDS ORDERED: MEPERIDINE HCL/PF 25 MG/ML DISP.SYRIN IVP PRN (08:30)
[2023-04-20] MEDS ORDERED: ONDANSETRON HCL 4 MG/2 ML VIAL IVP PRN (08:30)
[2023-04-20] MEDS ORDERED: HYDROmorphone 1 MG/ML INJ. CARTRIDGE IVP PRN ×3 (08:30)
[2023-04-20 13:42] VITALS: O2SAT 94
[2023-04-20 15:46] VITALS: BP_SYST 124; PULSE 90; RESP 17
== END 2023-04-20 11:37 | disposition home or self-care (01) ==
LOC: SDS 06:15 → SMU 06:18 → SDS 11:37
PROVIDERS: ATTEND Internal Medicine Gastroenterology
DX: Z12.11 Encounter for screening for malignant neoplasm of colon (principal); K63.5 Polyp of colon; K64.8 Other hemorrhoids; I12.0 Hypertensive chronic kidney disease with stage 5 chronic kidney disease or end stage renal disease; E11.22 Type 2 diabetes mellitus with diabetic chronic kidney disease; N18.6 End stage renal disease; E78.00 Pure hypercholesterolemia, unspecified; Z99.2 Dependence on renal dialysis; Z89.612 Acquired absence of left leg above knee; Z79.899 Other long term (current) drug therapy
CPT/HCPCS: 71046; 93005; 45385; 80053; 82962; 36415; 88305; G0378; J2704; J7030